=== PATIENT | female | born 1950 | race Caucasian/White ===

== ENCOUNTER 2017-08-01 11:52 | Emergency (ER) | payer OTHER ==
[2017-08-01 12:13] VITALS: BP 141/80
[2017-08-01 18:33] LABS: Hematocrit 39 % (35-47); Hemoglobin 13.1 g/dl (12.0-16.0); Mean Corpuscular HGB Conc 34 g/dl (31-36); Mean Corpuscular Hemoglobin 31 pg (27-31); Mean Corpuscular Volume 91 fL (80-97); Mean Platelet Volume 11 um3 (7.4-10.4); Red Blood Count 4.29 10^6/ul (4.0-5.4); Red Cell Distribution Width 13 % (10.5-15); White Blood Count 4.9 10^3/ul (3.5-10.8)
[2017-08-01 18:46] LABS: Anion Gap 5 mmol/L (2-11); BUN/Creatinine Ratio 20.7 (8-20); Blood Urea Nitrogen 17 mg/dL (6-24); C Reactive Protein < 1.00 mg/L (< 5.00); CO2 Carbon Dioxide 29 mmol/L (22-32); Calcium 9.7 mg/dL (8.6-10.3); Chloride 104 mmol/L (101-111); EGFR African American 90.3 (>60); EGFR Non-African American 70.2 (>60); Glucose 91 mg/dL (70-100); Sodium 138 mmol/L (133-145)
[2017-08-01 20:36] LABS: Erythrocyte Sed Rate 14 mm/Hr (0-30)
--- NOTE | 2017-09-05 17:43 | UC ---
UC General HPI - HPI Summary HPI Summary: pt presents with 1 year h/o migratory joint pain, ariza, brain fog and fatigue x 1 yr. all of which started suddenly with an initial ariza. pt spends a lot of time gardening and hiking. she is concerned that she may have gotten lyme dz and would like to be tested. - History of Current Complaint Chief Complaint: UCGeneralIllness Stated Complaint: PALPITATIONS,JOINT BONE ACHES,HEADACHE Time Seen by Provider: 08/01/17 12:08 Hx Obtained From: Patient Onset/Duration: Sudden Onset, Lasting Weeks, Still Present Timing: Constant Onset Severity: Moderate Current Severity: Moderate Pain Intensity: 7 Associated Signs & Symptoms: Positive: Diarrhea, Headache, Palpitations - chronic - Allergy/Home Medications Allergies/Adverse Reactions: Allergies Allergy/AdvReac Type Severity Reaction Status Date / Time Aspirin Allergy Unknown Rash Verified 08/01/17 12:00 Penicillins Allergy Unknown Rash Verified 08/01/17 12:00 Sulfa Antibiotics Allergy Unknown Rash Verified 08/01/17 12:00 Home Medications: Home Medications NK [No Home Medications Reported] 08/01/17 [History Confirmed 08/01/17] PMH/Surg Hx/FS Hx/Imm Hx - Additional Past Medical History Additional PMH: lymphoma of sm bowel, mvp Cardiovascular History: Other Other Cardiovascular History: palpitations, mvp 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 - Surgical History Surgical History: Yes Surgery Procedure, Year, and Place: 2002 TO EXCISE LYMPHOMA MASS/SMALL INTESTINE - Family History Known Family History: Negative: Cardiac Disease, Hypertension, Diabetes - Social History Lives: With Family Alcohol Use: Rare Substance Use Type: None Smoking Status (MU): Never Smoked Tobacco Review of Systems Constitutional: Negative Eyes: Negative ENT: Negative Respiratory: Negative Cardiovascular: Palpitations - none currently Gastrointestinal: Negative Genitourinary: Negative Musculoskeletal: Arthralgia, Myalgia Neurological: Headache - none currently Psychological: Anxious All Other Systems Reviewed And Are Negative: Yes Physical Exam Triage Information Reviewed: Yes Appearance: Well-Appearing, No Pain Distress, Well-Nourished Vital Signs: Initial Vital Signs Temp 98.4 F 08/01/17 12:01 Pulse 80 08/01/17 12:01 Resp 16 08/01/17 12:01 BP 141/80 08/01/17 12:01 Pulse Ox 100 08/01/17 12:01 Vital Signs Reviewed: Yes Eyes: Positive: Conjunctiva Clear. Negative: Discharge ENT: Positive: Hearing grossly normal. Negative: Muffled/hoarse voice Neck: Positive: Supple, Nontender, No Lymphadenopathy Respiratory: Positive: Lungs clear, Normal breath sounds, No respiratory distress Cardiovascular: Positive: RRR, No Murmur Musculoskeletal Exam: Normal Musculoskeletal: Positive: Strength Intact, ROM Intact, No Edema Neurological: Positive: Alert, Muscle Tone Normal, Other: - aox3, strength, sensation, reflexes intact bl, no cerebellar signs, cn 2-12 intact Psychological: Positive: Age Appropriate Behavior Skin Exam: Normal Course/Dx - Differential Dx - Multi-Symptom Provider Diagnoses: arthralgia, fatigue Discharge - Discharge Plan Condition: Stable Disposition: HOME Patient Education Materials: Arthralgia (ED), Fatigue (ED) Referrals: Vasile Glass MD [Medical Doctor] - (follow up in 4-7 days) Additional Instructions: WE ARE DOING SOME LAB WORK. YOU WILL BE CALLED WITH ABNORMAL RESULTS. YOU WOULD LIKELY BENEFIT FROM OSTEOPATHIC MANIPULATION. WE RECOMMEND THAT YOU FIND AN OSTEOPATHIC PHYSICIAN IN YOUR AREA WHO DOES LYMPHATIC, MYOFACIAL AND VISCERAL WORK
== END 2017-08-01 13:27 | disposition home or self-care (01) ==
LOC: UCEAST 11:52
DX: M25.50 Pain in unspecified joint (principal); R53.83 Other fatigue; R19.7 Diarrhea, unspecified; R51 Headache; R00.2 Palpitations; Z85.72 Personal history of non-Hodgkin lymphomas; Z88.6 Allergy status to analgesic agent; Z88.0 Allergy status to penicillin; Z88.2 Allergy status to sulfonamides
CPT/HCPCS: 36415; 80048; 85025; 85652; 86140; 86618; 93005; 99201; G0463